=== PATIENT | female | born 1935 | race Caucasian/White ===

== ENCOUNTER 2018-05-10 11:22 | Emergency (ER) | payer OTHER ==
--- NOTE | 2018-05-10 12:41 | EDPHY ---
H & P Time Seen by Provider: 05/10/18 12:10 HPI/ROS: CHIEF COMPLAINT: Left shoulder and neck pain HISTORY OF PRESENT ILLNESS: 82-year-old woman otherwise pretty healthy presents with atraumatic left shoulder and neck pain for the past 4 days. She had about a month ago and lasted for 2-3 days and then went away. She describes pretty constant left-sided trapezius and lateral neck radiating to her left shoulder pain which is mild to moderate and not associated with weakness or numbness in the left hand or arm. She says when she lies down at night he can feel better but it is definitely not positional or exertional. Some associated with shortness of breath or any other neurologic symptoms. She describes starting most recently on when she was in exercise class. REVIEW OF SYSTEMS: Eye: no change in vision ENT: no sore throat Cardiac: no chest pain or syncope Pulmonary: no cough or SOB Abdomen: no vomiting, diarrhea, abdominal pain Musculoskeletal: HPI Skin: no rash Neuro: She had a little bit of tingling in her left hip 3 days ago but it is gone now. Constitutional: no fever : no urinary symptoms A comprehensive 10 point review of systems is otherwise negative aside from elements mentioned in the history of present illness. PAST MEDICAL HISTORY: Glaucoma Social history: [facility] patient General Appearance: Alert and conversant, cooperative. Eyes: No scleral icterus. ENT, Mouth: Normal mucous membranes. Respiratory: Normal respiratory effort, breath sounds equal, lungs are clear to auscultation. Cardiovascular: Regular rate and rhythm. Normal radial pulse in the left hand. Gastrointestinal: Abdomen is soft and non tender. Neurological: Alert, face symmetric, normal motor and sensory in extremities. Specifically she has normal motor and sensory in the median radial and ulnar nerve distributions in both upper extremities. Skin: Warm and dry, no rashes. No zoster. Musculoskeletal: No tenderness to palpation on the trapezius with the left shoulder, normal range of motion of the left shoulder both passively and actively. She can do resisted adduction and abduction without pain. Psychiatric: Not agitated. Emergency Department course/MDM: Patient does not appear to have joint problem or rotator cuff she does not have any tenderness or pain related to any motion or movement of her shoulder. Septic joint be unlikely. I think ACS is unlikely she does not have any acute ST changes with 3 days of continuous symptoms and negative troponin. I discussed with the the possibility of nerve root impingement or compression, the patient would like to be treated empirically for that and does not want have any imaging including MRI at this time. I think this is reasonable she does not have distal neurovascular deficits on examination. She does not have Skin evidence of zoster. She did not have abdominal tenderness over the spleen or history of trauma to suggest splenic problem. She declined any additional pain medication, will follow up with her doctor [facility] this week if not improving. Return immediately she develops any weakness or numbness in that arm or fever or new symptoms. Smoking Status: Never smoked Constitutional: Initial Vital Signs Temperature (C) 36.7 C 05/10/18 11:26 Heart Rate 75 05/10/18 11:26 Respiratory Rate 16 05/10/18 11:26 Blood Pressure 145/75 H 05/10/18 11:26 O2 Sat (%) 94 05/10/18 11:26 O2 Delivery Mode Room Air Allergies/Adverse Reactions: No Known Allergies Allergy (Unverified 05/10/18 11:30) Home Medications: Medication Instructions Recorded methylPREDNISolone [Medrol Dose 1 each PO AD #1 ea 05/10/18 Robert] MDM/Departure - MDM Diagnostics: 12-lead EKG interpreted by me; official reading is in computer system. My interpretation is sinus rhythm rate 70 to with early RS transition. No acute ST changes. - Depart Disposition: Home, Routine, Self-Care Clinical Impression: left neck and shoulder pain Condition: Good Instructions: Cervical Radiculopathy (ED) Additional Instructions: Please follow-up at [facility] this week. Return immediately for worsening or severe pain, fever, weakness or numbness of the left arm. Prescriptions: methylPREDNISolone [Medrol Dose Robert] 1 each PO AD #1 ea Referrals: KENDRA LAU [Other] - As per Instructions
[2018-05-10 13:12] VITALS: BP 136/70
== END 2018-05-10 13:04 | disposition home or self-care (01) ==
DX: M25.512 Pain in left shoulder (principal); M54.2 Cervicalgia
CPT/HCPCS: 84484-PO